=== PATIENT | female | born 1975 | race Caucasian/White ===

== ENCOUNTER 2016-09-13 06:04 | Outpatient (CLI) | payer OTHER ==
[2016-09-13 06:31] LABS: #Basophils 0.1 thou/uL (0.0-0.2); #Eosinphils 0.1 thou/uL (0.0-0.7); #Lymphocytes 2.3 thou/uL (1.20-3.40); #Monocytes 0.5 thou/uL (0.11-0.59); #Neutrophils 3.7 thou/uL (1.40-6.50); %Basophils 1.2 % (0.0-1.0); %Eosinophils 0.8 % (0.0-10.0); %Monocytes 6.9 % (0.0-10.0); Hematocrit 43.6 % (36.0-47.0); Mean Platelet Volume 5.9 fL (7.4-10.4); Red Blood Cell (RBC) Count 4.53 mill/uL (4.20-5.40); White Blood Cell (WBC) Count 6.6 thou/uL (4.8-10.8)
[2016-09-13 06:33] LABS: Bilirubin Negative (Negative); Blood, Urine Trace (Negative); Glucose, Urine (Dipstick) Negative (Negative); Ketone, Urine Negative (Negative); Nitrite Negative (Negative); Protein, Urine (Dipstick) Negative (Neg-Trace); Urobilinogen 0.2 mg/dL (0.2-1.0)
[2016-09-13 06:42] LABS: Bacteria/HPF Rare-Few HPF (None Seen); RBC/HPF 0-3 HPF (0-3); Squamous Epithelial 0-3 HPF (0-3); WBC/HPF 0-3 HPF (0-3)
[2016-09-13 06:46] LABS: ALT (SGPT) 14 U/L (0-55); AST (SGOT) 15 U/L (5-34); Alkaline Phosphatase 48 U/L (40-150); Anion Gap 14 mmol/L (10-20); BUN (Urea Nitrogen) 9 mg/dL (7.0-18.7); Bilirubin, Total 1.1 mg/dL (0.2-1.2); Calc. Creatinine Clearance 0 mL/min (70-130); Calcium 9.5 mg/dL (7.8-10.44); Carbon Dioxide 23 mmol/L (22-29); Chloride 105 mmol/L (98-107); Estimated GFR-MDRD 62; Globulin 2.1 g/dL (2.4-3.5); LDL Cholesterol, Calculated 101 mg/dL; Protein, Total 6.6 g/dL (6.0-8.3)
== END 2016-09-13 06:05 | disposition home or self-care (01) ==
LOC: BURLAB 06:04
PROVIDERS: ATTEND Family Medicine
DX: Z00.00 Encounter for general adult medical examination without abnormal findings (principal)
CPT/HCPCS: 36415; 80053; 80061; 81001; 84443; 85025

== ENCOUNTER 2016-10-05 14:38 | Outpatient (CLI) | payer OTHER ==
[~2016-10-05 14:38] MED LIST: Iopamidol 370 76% 100 ML VIAL ONE
--- NOTE | 2016-10-05 23:19 | CT ---
CT ABDOMEN AND PELVIS WITH AND WITHOUT CONTRAST AND MULTIPLANAR RECONSTRUCTIONS 10/05/[address] of the abdomen and pelvis was done pre and post IV contrast for evaluation of chronic rubina turia and unexplained weight loss. There is a history of prior uterine ablation and tubal ligation. Axial slices were acquired, then coronal and sagittal reconstructions were done. The lung bases are clear. The liver, spleen, pancreas, adrenal glands, gallbladder and aorta all olivia ear normal. The kidneys showed no mass, hydronephrosis, or renal calculi. The bowel is nondistended. There is no inflammatory change around bowel. No free air or free fluid w as seen. CT of the pelvis showed no pelvic masses, fluid collections, or other acute changes. There might be a small amount of free fluid in the cul-de-sac. Clips are seen from prior pelvic surgery. IMPRESSION: No acute abdominal or pelvic findings. Specifically, there were no findings to explain weight loss o r hematuria. POS: HOME
== END 2016-10-05 14:39 | disposition home or self-care (01) ==
LOC: BURCT 14:38
PROVIDERS: ATTEND Family Medicine
DX: R31.9 Hematuria, unspecified (principal)
CPT/HCPCS: 74178